=== PATIENT | male | born 1975 | race Caucasian/White ===

== ENCOUNTER 2017-06-18 21:03 | Inpatient (IN) | payer OTHER ==
[~2017-06-18] VITALS: Ht 182.9 cm; Wt 79.8 kg
--- NOTE | ~2017-06-18 | 2DMMODE ---
[facility] [address] [place] [address] 2 D/M-MODE ECHOCARDIOGRAM Name: JOEKAYLA Room #: 447-P [facility] IN ..#: [id number] Admission: 06/18/17 Attend Phys: Grant Cifuentes MD Discharge: Date of : 71 Date of Service: 06/21/17 1749 Report #: [id number] THIS REPORT FOR: //name// APPROVED REPORT Study performed: 06/21/2017 08:58:36 EXAM: Comprehensive 2D, Doppler, and color-flow Echocardiogram Patient Location: Echo lab Room #: [facility] Status: routine BSA: 2.00 HR: 60 bpm BP: 109/64 mmHg Rhythm: NSR Other Information Study Quality: Adequate Indications Pre-Op COPD Dyspnea Chest Pain 2D Dimensions RVDd: 48.14 mm LVEF(%): 82.87 (>50%) IVSd: 9.68 (7-11mm) LVOT Diam: 22.04 (18-24mm) LVDd: 42.44 mm PWd: 11.17 (7-11mm) LVDs: 20.65 (25-40mm) Aortic Root: 31.26 mm IVC: 2.20 mm TAPSE: 1.70 (<1.7) Godinez's LVEF: 82.87 % Volumes Left Atrial Volume (Systole) Single Plane 4CH: 41.15 mL Single Plane 2CH: 44.66 mL LA ESV Index: 23.60 mL/m2 Aortic Valve AoV Peak Arnulfo.: 1.31 m/s AO Peak Gr.: 6.91 mmHg LVOT Max P.92 mmHg LVOT Max V: 1.32 m/s ALEXIS Vmax: 3.82 cm2 [facility] [address] [place] [address] 2 D/M-MODE ECHOCARDIOGRAM Name: KAYLA DIAZ Room #: 447-P [facility].#: [id number] Admission: 06/18/17 Attend Phys: Grant Cifuentes MD Discharge: Date of : 71 Date of Service: 06/21/17 1749 Report #: [id number] Mitral Valve E/A Ratio: 2.1 MV Decel. Time: 178.42 ms MV E Max Arnulfo.: 0.80 m/s MV A Arnulfo.: 0.39 m/s MV PHT: 51.74 ms IVRT: 83.04 ms Pulmonary Valve PV Peak Arnulfo.: 0.83 m/s PV Peak Gr.: 2.73 mmHg Pulmonary Vein P Vein S: 0.49 m/s P Vein A: 0.21 m/s P Vein D: 0.51 m/s P Vein A Dur.: 106.1 msec P Vein S/D Ratio: 0.96 Left Ventricle The left ventricle is normal size. Regional wall motion is not well visualized but grossly normal. There is normal left ventricular wall thickness. The left ventricular systolic function is normal. The left ventricular ejection fraction is within the normal range. LVEF 55%. The left ventricular diastolic function is normal. Right Ventricle Right ventricle is dilated. The right ventricular systolic function is normal. Atria The left atrium size is normal. The right atrium size is normal. Aortic Valve The aortic valve is normal in structure. No aortic regurgitation is present. There is no aortic valvular stenosis. Mitral Valve The mitral valve is normal in structure. There is no mitral valve regurgitation noted. No evidence of mitral valve stenosis. Tricuspid Valve The tricuspid valve is normal in structure. There is trace tricuspid regurgitation. Pulmonic Valve Pulmonic valve is not well visualized. Trace pulmonic [address] [address] 2 D/M-MODE ECHOCARDIOGRAM Name: ROSANNA DIAZAlbania Gonzales Room #: 447-P [facility]#: [id number] Admission: 06/18/17 Attend Phys: Grant Cifuentes MD Discharge: Date of : 71 Date of Service: 06/21/17 1749 Report #: [id number] regurgitation. Great Vessels The aortic root is normal in size. IVC is dilated and collapses >50% with inspiration. Pericardium There is no pericardial effusion. <Conclusion> The left ventricular systolic function is normal. Regional wall motion is not well visualized but grossly normal. LVEF 55%. The aortic valve is normal in structure. No aortic regurgitation or stenosis The mitral valve is normal in structure. No mitral valve regurgitation Pulmonary artery pressure could not be reliably ascertained There is no pericardial effusion. <ELECTRONICALLY SIGNED> By: Zach Barrera MD, FACC 06/21/17 174 174 48 Zach Barrera MD, FACC /INF
--- NOTE | ~2017-06-18 | 2DMMODE ---
[facility] [address] [place] [address] 2 D/M-MODE ECHOCARDIOGRAM Name: KAYLA DIAZ E Room #: 239-P [facility] IN ..#: [id number] Admission: 06/18/17 Attend Phys: Grant Cifuentes MD Discharge: Date of : 71 Date of Service: 06/24/17 1158 Report #: [id number] THIS REPORT FOR: //name// APPROVED REPORT Study performed: 06/24/2017 10:38:16 EXAM: Comprehensive 2D, Doppler, and color-flow Echocardiogram Patient Location: ICU Room #: [facility] Status: stat BSA: 2.04 Other Information Study Quality: Good Indications Pulmonary Embolism Pulmonary Hypertension Dyspnea 2D Dimensions RVDd: 46.80 mm IVC: 22.00 mm Volumes Left Atrial Volume (Systole) Single Plane 4CH: 32.39 mL Single Plane 2CH: 38.33 mL LA ESV Index: 20.00 mL/m2 Tricuspid Valve TR Peak Arnulfo.: 3.88 m/s TR Peak Gr.: 60.19 mmHg PA Pressure: 75.00 mmHg Left Ventricle The left ventricle is normal size. There is normal left ventricular wall thickness. Left ventricular systolic function is hyperdynamic. LVEF is >70%. This study is not technically sufficient to allow evaluation of the LV diastolic function. Right Ventricle Right ventricle is dilated. Right ventricle is hypokinetic. [facility] [address] [place] [address] 2 D/M-MODE ECHOCARDIOGRAM Name: KAYLA DIAZ Room #: 239-P ADM IN .R.#: [id number] Admission: 06/18/17 Attend Phys: Grant Cifuentes MD Discharge: Date of : 71 Date of Service: 06/24/17 1158 Report #: [id number] Atria The left atrium size is normal. Right atrium is dilated. Aortic Valve The aortic valve is normal in structure. No aortic regurgitation is present. There is no aortic valvular stenosis. Mitral Valve The mitral valve is normal in structure. There is no mitral valve regurgitation noted. No evidence of mitral valve stenosis. Tricuspid Valve The tricuspid valve is normal in structure. There is mild tricuspid regurgitation. The right atrial pressure is estimated at mmHg. There is severe pulmonary hypertension. Estimated PAP was 75 mmHg. Pulmonic Valve The pulmonary valve is normal in structure. There is no pulmonic valvular regurgitation. Great Vessels The aortic root is normal in size. The inferior vena cava is dilated with no inspiratory collapse. Pericardium There is no pericardial effusion. <Conclusion> Right ventricle is dilated. Right atrium is dilated. There is severe pulmonary hypertension. Estimated PAP was 75 mmHg. The left ventricle is normal size. Left ventricular systolic function is hyperdynamic. The aortic valve is normal in structure. There is no mitral valve regurgitation noted. There is no pericardial effusion. <ELECTRONICALLY SIGNED> By: Aly Yepez MD 06/24/17 1158 1158 1158 Aly Yepez MD /INF
--- NOTE | ~2017-06-18 | EKG ---
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
--- NOTE | ~2017-06-18 | EKG ---
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
--- NOTE | ~2017-06-18 | S ---
[facility] [place] [address] SURGICAL PATH RPT PROCEDURE Name: KAYLA KUO Room #: 239-P ADM IN M.R.#: [id number] Admission: 06/18/17 Date of : 71 Discharge: Report #: [id number] Path Case #: [id number] PATHOLOGY REPORT COLLECTION DATE: 06/22/2017 RECEIVED DATE: 06/23/2017 SUBMITTING PHYS: Dr. Shekhar Isidro M.D. OTHER PHYS: Dr. Grant Cifuentes SPECIMEN(S) RECEIVED: A.Right upper lobe bleb * * * * * * * * * * * * FINAL DIAGNOSIS: Portion of lung and pleura, "right upper lobe bleb" wedge resection: - Bullae (bleb formation) with reactive mesothelial proliferation, focal dystrophic calcification, and with moderate chronic inflammation. - Recent and remote hemorrhage. - Fragment of lung reveals recent hemorrhage. - There is no evidence of malignancy. - See comment. (SHA:vicente; 06/24/2017) COMMENT: This case is also reviewed by Dr. Julia Whitlock. PATHOLOGIST: Cesar Anna M.D. REPORT ELECTRONICALLY SIGNED BY: Cesar Anna M.D. DATE/TIME: 06/24/2017 13:29 * * * * * * * * * * * * GROSS PATHOLOGY: The specimen is received in formalin, labeled "Kayla Kuo, right upper lobe bleb are 3 wedge-shaped portions of pulmonary tissue ranging in size from 2.7 x 1.5 x 1.5 cm-8.0 x 3.2 x 2.0 cm, with a combined weight of 28 g. Each fragment shows a staple line at one surface. The smaller fragment shows a protruding cyst like structure measuring 2.7 cm in greatest dimension. The pleural surfaces are smooth to roughened, glistening, purple, and hemorrhagic. Sectioning each reveals occasional blebs measuring up to 1.1 cm in greatest dimension. The remaining parenchyma is markedly congested and dark red. No additional lesions or masses are identified. [employer] sections are submitted as A1. (ISABELL; 06/23/2017) [facility] [place] [address] SURGICAL PATH RPT PROCEDURE Name: KAYLA KUO Room #: 239-P ADM IN .R.#: [id number] Admission: 06/18/17 Date of : 71 Discharge: Report #: [id number] Path Case #: [id number] CLINICAL HISTORY: Recurrent right pneumothorax INITIAL CPT CODE(S): A; 91990 Professional services performed by [facility] at [facility] [address] [place] [address] Technical services performed by [facility] at [address] [place] [address], [facility] [address] [address]. [facility] [address] [place] [address] PHONE: [phone] DIRECTOR: Justin Carrasco M.D. * * * END OF REPORT * * *
--- NOTE | ~2017-06-18 | HC ---
[facility] [place] [address] CONSULTATION Name: KAYLA DIAZ Room #: 447-P ADM IN M.R.#: [id number] Admission: 06/18/17 Attend Phys: Grant Cifuentes MD Discharge: Date of : 71 Report #: [id number] THIS REPORT FOR: //name// CC: [facility] physician/PCP Grant Lieberman MD REFERRAL PHYSICIAN: Grant Cifuentes M.D. REASON FOR REFERRAL: Pneumothorax. HISTORY OF PRESENT ILLNESS: The patient is a 41-year-old white male who was transferred from [facility] for right-sided pneumothorax. A pulmonary consultation was requested. At this present time, the patient is not able to give adequate history as he has been given medication. He appears somewhat somnolent. The patient presented to the [facility] for complaints of shortness of breath and right-sided chest pain. A chest x-ray showed right-sided pneumothorax. He was subsequently transferred to [facility] for further evaluation and management. According to the records, the patient had a prior history of right pneumothorax in 1998. Details of this are unknown. He also has an apparent history of bilateral DVT and pulmonary embolus. Detail of this again is unknown. Presently, he complains of chest pain. Otherwise, denies any recent trauma, nausea, vomiting or diarrhea. PAST MEDICAL HISTORY: As mentioned above and including apparent history of pneumothorax in 1998, on the right chest, COPD, history of heart failure, bilateral DVT, PE, gastroesophageal reflux disease and history of small-bowel obstruction with laparotomy, appendectomy, cholecystectomy and ventral hernia repair along with inguinal hernia repair. ALLERGIES: ACETAMINOPHEN, WHICH CAUSES NAUSEA AND VOMITING. PROPOXYPHENE CAUSES NAUSEA AND VOMITING. TRAMADOL CAUSES HIVES. HOME MEDICATIONS: List includes Bentyl, DuoNeb, Prilosec, ProAir and Coumadin 6 mg once a day. FAMILY HISTORY: Unremarkable. SOCIAL HISTORY: The patient smokes about 5 cigarettes per day. He denies any [facility] [address] [place] [address] CONSULTATION Name: KAYLA DIAZ Room #: 447-P [facility].#: [id number] Admission: 06/18/17 Attend Phys: Grant Cifuentes MD Discharge: Date of : 71 Report #: [id number] alcohol use. Denies any drug use. REVIEW OF SYSTEMS: Deferred as the patient is semi-awake at this time due to recent medications. PHYSICAL EXAMINATION: GENERAL: He is arousable, in no apparent distress. VITAL SIGNS: Temperature is 98 degrees Fahrenheit, pulse is 54, respiratory rate is 18, blood pressure is 100/55 mmHg, saturation is 99%. HEENT: Normocephalic, atraumatic. NECK: Supple without any lymphadenopathy or thyromegaly. CHEST: Breath sounds are clear bilaterally without any rales or wheezes. CARDIOVASCULAR: Normal S1 and S2. There are no murmurs or gallops. There is no JVD. There is no carotid bruit. Pulses are 2+/4+ bilaterally. ABDOMEN: Soft, nontender, no organomegaly or masses felt. GENITOURINARY AND RECTAL: Deferred. EXTREMITIES: There is no edema, cyanosis or clubbing. LABORATORY DATA: Portable chest x-ray revealed approximately 30% right-sided pneumothorax. Left lung field is unremarkable. Cardiac silhouette is unremarkable. Electrolytes are normal. Creatinine is normal. WBC is 10,900. Hemoglobin is 15.7. INR is 2.1. IMPRESSION: 1. Recurrent right pneumothorax. Appears to be spontaneous. He has an apparent history of right pneumothorax in 1998. He is now status post chest tube placement. Right lung field has reexpanded. 2. 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 3. Chronic obstructive pulmonary disease. 4. Tobacco abuse. RECOMMENDATION AND DISCUSSION: This is an apparent recurrent right-sided pneumothorax, although interval between pneumothorax is quite long. Because he smokes, he likely has underlying parenchymal abnormalities including subpleural blebs as a cause. I think the patient will benefit from surgical consultation for pleurodesis. We will continue chest tube to suction. Follow up chest x-ray. Consult Thoracic Surgery. Continue bronchodilators for COPD. The patient would benefit from counseling regarding smoke cessation. We would also continue anticoagulation given his history of DVT and pulmonary embolus. Details of this are unknown, whether it is provoked or unprovoked, along with duration of therapy. This will be further evaluated once the patient is more alert. [facility] [address] [place] [address] CONSULTATION Name: KAYLA DIAZ Room #: 447-P ADM IN M.R.#: [id number] Admission: 06/18/17 Attend Phys: Grant Cifuentes MD Discharge: Date of : 71 Report #: [id number] Thank you for this consultation. <ELECTRONICALLY SIGNED> By: Sukhdev Lieberman MD 06/20/17 1209 1430 2205 Sukhdev Lieberman MD /nt
[2017-06-18] MEDS ORDERED: BENTYL 20 MG TA20 M1 PO (22:47)
[2017-06-18] MEDS ORDERED: DUONEB 2.5-0.5 M3 ML INH (22:48)
[2017-06-18] MEDS ORDERED: PRILOSEC OTC20 MG PO (22:48)
[2017-06-18] MEDS ORDERED: PROAIR HFA8.5 GM INH (22:49)
[2017-06-18] MEDS ORDERED: COUMADIN 3 MG TA3 MG PO (22:51)
[2017-06-18 22:52] VITALS: BP 112/64
[2017-06-19 03:50] LABS: HEMATOCRIT 45.5 % (42.0-52.0); HEMOGLOBIN 15.7 gm/dL (14.0-18.0); MCH 33.9 pg (26.0-34.0); MCHC 34.5 g/dL (28.0-37.0); MCV 98.4 fL (80.0-100.0); RBC 4.63 mil/uL (4.50-6.00); RDW 13.2 % (10.5-14.5); WBC 10.9 thou/uL (4.0-11.0)
[2017-06-19 04:00] LABS: CALCIUM 8.9 mg/dL (8.5-10.1); CREATININE 0.9 mg/dL (0.7-1.3); POTASSIUM 4.5 mmol/L (3.5-5.1)
[2017-06-19 04:03] LABS: INR 2.1; PROTIME 21.4 Seconds (9.3-11.4)
[2017-06-19 04:18] VITALS: BP 128/69
[2017-06-19 08:00] VITALS: BP 115/66
[2017-06-19 10:07] VITALS: BP 115/66
[2017-06-19 11:09] VITALS: BP 99/55
[2017-06-19 16:00] VITALS: BP 118/63
[2017-06-19 20:45] VITALS: BP 115/55
[2017-06-20 03:40] VITALS: BP 102/54
[2017-06-20 07:50] VITALS: BP 101/54
[2017-06-20 15:15] VITALS: BP 117/57
[2017-06-20 16:07] LABS: INR 1.4; PROTIME 14.2 Seconds (9.3-11.4)
[2017-06-20 20:47] VITALS: BP 135/73
[2017-06-21 05:42] LABS: APTT 30.1 Seconds (24.5-32.8); INR 1.2
[2017-06-21 05:45] VITALS: BP 115/63
[2017-06-21 07:58] VITALS: BP 109/64
[2017-06-21 16:17] VITALS: BP 128/73
[2017-06-21 19:05] VITALS: BP 125/70
[2017-06-22] VITALS (11 sets, daily range): BP systolic 106–133; BP diastolic 66–76
[2017-06-22 05:38] LABS: INR 1.1; PROTIME 10.8 Seconds (9.3-11.4)
[2017-06-23] VITALS (16 sets, daily range): BP systolic 91–122; BP diastolic 56–79
[2017-06-23 05:09] LABS: HEMATOCRIT 41.2 % (42.0-52.0); HEMOGLOBIN 14.1 gm/dL (14.0-18.0); MCH 33.7 pg (26.0-34.0); MCHC 34.2 g/dL (28.0-37.0); MCV 98.6 fL (80.0-100.0); RBC 4.18 mil/uL (4.50-6.00); RDW 12.8 % (10.5-14.5); WBC 12.6 thou/uL (4.0-11.0)
[2017-06-23 05:21] LABS: CALCIUM 8.5 mg/dL (8.5-10.1); CREATININE 0.9 mg/dL (0.7-1.3); POTASSIUM 4.6 mmol/L (3.5-5.1)
[2017-06-24] VITALS (27 sets, daily range): BP systolic 99–134; BP diastolic 62–90
[2017-06-24 09:09] LABS: HEMATOCRIT 39.2 % (42.0-52.0); HEMOGLOBIN 13.3 gm/dL (14.0-18.0); MCH 33.5 pg (26.0-34.0); MCHC 33.9 g/dL (28.0-37.0); MCV 98.8 fL (80.0-100.0); RBC 3.97 mil/uL (4.50-6.00); RDW 13.3 % (10.5-14.5); WBC 19.5 thou/uL (4.0-11.0)
[2017-06-24 09:24] LABS: ABG SAMPLE TYPE ARTERIAL; BE(vivo) 1.3 mmol/L (-2 to +3); HCO3 26.9 mmol/L (22.0-26.0); LACTATE 2.12 mmol/L (0.5-2.0); O2(CT) 18.1 mL/dL (15.0-23.0); O2Hb 91.5 % (92.0-98.0); PCO2 46.3 mmHg (35.0-45.0); pH 7.382 (7.360-7.450); sO2 92.6 % (92.0-98.0); tCO2 28.3 mmol/L (24.0-30.0)
[2017-06-24 09:25] LABS: STICK SITE L.BRACHIAL
[2017-06-24 10:05] LABS: APTT 32.7 Seconds (24.5-32.8); INR 1.1
[2017-06-25] VITALS (29 sets, daily range): BP systolic 89–121; BP diastolic 55–87
[2017-06-25 08:10] LABS: HEMATOCRIT 35.4 % (42.0-52.0); HEMOGLOBIN 12.2 gm/dL (14.0-18.0); MCH 33.7 pg (26.0-34.0); MCHC 34.6 g/dL (28.0-37.0); MCV 97.6 fL (80.0-100.0); RBC 3.63 mil/uL (4.50-6.00); RDW 13.3 % (10.5-14.5); WBC 14.6 thou/uL (4.0-11.0)
[2017-06-25 08:22] LABS: CALCIUM 9.2 mg/dL (8.5-10.1); CREATININE 0.8 mg/dL (0.7-1.3); POTASSIUM 3.9 mmol/L (3.5-5.1)
[2017-06-26 00:17] VITALS: BP 91/50
[2017-06-26 04:10] VITALS: BP 102/57
[2017-06-26 04:55] LABS: HEMOGLOBIN 11.6 gm/dL (14.0-18.0); MCH 33.7 pg (26.0-34.0); MCHC 34.1 g/dL (28.0-37.0); MCV 98.6 fL (80.0-100.0); RBC 3.44 mil/uL (4.50-6.00); RDW 12.8 % (10.5-14.5); WBC 12.5 thou/uL (4.0-11.0)
[2017-06-26 08:15] VITALS: BP 103/61
[2017-06-26 12:26] VITALS: BP 115/65
[2017-06-26 16:18] VITALS: BP 121/76
[2017-06-26 16:42] LABS: PROTIME 9.6 Seconds (9.3-11.4)
[2017-06-26 20:00] VITALS: BP 119/66
[2017-06-27 04:00] VITALS: BP 112/61
[2017-06-27 06:50] LABS: HEMATOCRIT 33.2 % (42.0-52.0); HEMOGLOBIN 11.2 gm/dL (14.0-18.0); MCH 33.1 pg (26.0-34.0); MCHC 33.8 g/dL (28.0-37.0); MCV 98.1 fL (80.0-100.0); RBC 3.38 mil/uL (4.50-6.00); RDW 12.8 % (10.5-14.5); WBC 11.2 thou/uL (4.0-11.0)
[2017-06-27 08:34] VITALS: BP 111/63
[2017-06-27 09:33] LABS: PROTIME 9.7 Seconds (9.3-11.4)
[2017-06-27 19:41] VITALS: BP 108/64
[2017-06-28 04:50] VITALS: BP 108/56
[2017-06-28 06:45] LABS: PROTIME 10.1 Seconds (9.3-11.4)
[2017-06-28 08:08] VITALS: BP 114/71
[2017-06-28 12:11] VITALS: BP 131/72
[2017-06-28] MEDS ORDERED: PERCOCET PO (12:42)
[2017-06-28] MEDS ORDERED: ELIQUIS5 MG PO ×2 (12:42→12:47)
[2017-06-28] MEDS ORDERED: AUGMENTIN 875-1 EACH PO (12:43)
[2017-06-28 12:56] VITALS: BP 131/72
== END 2017-06-28 14:55 | disposition home or self-care (01) | DRG 163 ==
LOC: EDSEX → 4S 21:03 → ICU 06-22 17:06 → 2N 06-23 19:47 → ICU 06-24 10:20 → 4W 06-25 16:56
PROVIDERS: Hospitalist; Internal Medicine; Internal Medicine Pulmonary Disease; Nurse Practitioner; Nurse Practitioner Family
PROC: 0W9930Z Drainage of Right Pleural Cavity with Drainage Device, Percutaneous Approach (ICD-10-PCS; principal; 2017-06-19)
PROC: 0BBC0ZZ Excision of Right Upper Lung Lobe, Open Approach (ICD-10-PCS; 2017-06-22)
PROC: 3E0L3GC Introduction of Other Therapeutic Substance into Pleural Cavity, Percutaneous Approach (ICD-10-PCS; 2017-06-22)
PROC: 4A133J1 Monitoring of Arterial Pulse, Peripheral, Percutaneous Approach (ICD-10-PCS; 2017-06-22)
PROC: 4A133B1 Monitoring of Arterial Pressure, Peripheral, Percutaneous Approach (ICD-10-PCS; 2017-06-22)
DX: J93.83 Other pneumothorax (principal); J96.20 Acute and chronic respiratory failure, unspecified whether with hypoxia or hypercapnia; I26.99 Other pulmonary embolism without acute cor pulmonale; I82.443 Acute embolism and thrombosis of tibial vein, bilateral; J44.9 Chronic obstructive pulmonary disease, unspecified; I50.9 Heart failure, unspecified; K21.9 Gastro-esophageal reflux disease without esophagitis; F17.210 Nicotine dependence, cigarettes, uncomplicated; I27.2 Other secondary pulmonary hypertension; D72.829 Elevated white blood cell count, unspecified; Z90.49 Acquired absence of other specified parts of digestive tract; Z88.6 Allergy status to analgesic agent; Z88.8 Allergy status to other drugs, medicaments and biological substances; Z71.6 Tobacco abuse counseling; Z79.01 Long term (current) use of anticoagulants; Z88.5 Allergy status to narcotic agent
CPT/HCPCS: 10045; 10078; 10100; 10203; 10797; 50010; 50101; 50249; 50386; 50417; 50455; 50497; 50558; 50739; 50740; 51489; 51687; 52265; 52266; 54118; 56524; 56525; 56526; 62110; 62900; 70005

== ENCOUNTER 2017-07-05 09:46 | Inpatient (IN) | payer OTHER ==
[~2017-07-05] VITALS: Ht 182.9 cm; Wt 77.8 kg
[2017-07-05] VITALS (19 sets, daily range): BP systolic 114–131; BP diastolic 63–80
--- NOTE | ~2017-07-05 | HC ---
[facility] [place] [address] CONSULTATION Name: KAYLA DIAZ Room #: 239-P ADM IN M.R.#: [id number] Admission: 07/05/17 Attend Phys: Galo Corey Discharge: Date of : 71 Report #: [id number] THIS REPORT FOR: //name// CC: Shekhar Isidro MD [facility] physician/PCP Galo Lieberman MD DATE OF SERVICE: 07/05/2017 REFERRING PROVIDER: Galo Corey MD REASON FOR CONSULTATION: Pneumothorax. HISTORY OF PRESENT ILLNESS: Our group was asked to see the patient in consultation while hospitalized at [facility], known to us from a recent admission for recurrent right pneumothorax, underwent right video-assisted thoracoscopy with right upper lobe wedge resection, talc pleurodesis June 22. This hospital course was complicated by venous thromboembolism, which he had difficulty with in the past, was discharged on Eliquis. The patient notes sudden symptoms yesterday evening after vigorous coughing with some right-sided chest pain. The patient does have an inhaler at home, which he uses rarely. Has not used his albuterol inhaler for 2 days despite having some ongoing cough that is nonproductive. No fever, chills or sweats. He was discharged on Augmentin, possible respiratory infection at that time as well. He went to [facility] for chest pain and shortness of breath, was found to have right lower chest pneumothorax with some significant volume loss. Right upper section appeared to be adherent to the chest wall. A small caliber chest tube was inserted there and he was transferred here; however, the small caliber chest tube was removed due to inadequate repositioning. The patient is pending placement of chest tube, appears comfortable on nonrebreather mask, speaking in full sentences in no distress. ALLERGIES: Include tramadol, morphine, Darvocet. OUTPATIENT MEDICATIONS: Include dicyclomine, DuoNebs, omeprazole, albuterol, oxycodone, amoxicillin, clavulanic acid and Eliquis. PAST MEDICAL HISTORY: 1. COPD, emphysema, predominant. 2. Gastroesophageal reflux disease. 3. Recurrent venous thromboembolism. PAST SURGICAL HISTORY: 1. Includes right video-assisted thoracoscopy as described in the HPI. [address] [address] CONSULTATION Name: KAYLA DIAZ Room #: 239-P [facility] IN M.R.#: [id number] Admission: 07/05/17 Attend Phys: Galo Corey Discharge: Date of : 71 Report #: [id number] 2. Appendectomy. 3. Cholecystectomy. 4. Small-bowel obstruction surgeries. 5. Ventral hernia repair. SOCIAL HISTORY: Ex-smoker, he states he quit about 1 month ago, occasional alcohol consumption. Currently living with family. FAMILY HISTORY: Negative for any pulmonary disease. REVIEW OF SYSTEMS: A 12-point review of systems is negative except as described in HPI. PHYSICAL EXAMINATION: VITAL SIGNS: Afebrile, pulse 70s and regular, respiratory rate 18, blood pressure 123/78. GENERAL: This is a pleasant middle-aged male in no distress. ENT: Clear oropharynx. No thrush. No erythema. NECK: Supple, no lymphadenopathy. LUNGS: Markedly diminished right base with hyperresonance to percussion with some diffuse expiratory wheezes noted. CARDIOVASCULAR: Heart regular. No murmurs noted. ABDOMEN: Soft, nontender, no masses. EXTREMITIES: Without edema, clubbing or cyanosis. INTEGUMENT: Without rash. LABORATORY DATA: CBC revealed mild anemia, hemoglobin 8, otherwise normal. Chemistry profile reveals sodium 144, potassium 2.6, chloride 116, bicarbonate 20, BUN 7, creatinine 0.4, glucose 76, calcium 5.2, albumin 1.6. INR 1.3. Chest x-ray as described in HPI. IMPRESSION: 1. Recurrent right pneumothorax, appears to have some positive result from his prior pleurodesis with the right upper lung arm apparently with good pleurodesis of right lower chest as recurrent pneumothorax. 2. History of recurrent venous thromboembolism and high risk of recurrent embolism given prior history and recent pulmonary embolism if the anticoagulation were to be discontinued. SUGGEST: 1. Continue to hold Eliquis. 2. Right chest tube placement. 3. When any persistent air leak is stopped, consider repeat pleurodesis, choice of agent depending on prior volume of talc used and would consider doxycycline as an alternative to significant amount of talc used in prior procedure. 4. Continue his bronchodilators. [address] [address] CONSULTATION Name: JOEKAYLA E Room #: 239-P [facility] IN M.R.#: [id number] Admission: 07/05/17 Attend Phys: Galo Corey Discharge: Date of : 71 Report #: [id number] 5. Continue with full Lovenox anticoagulation or heparin gtt during this time frame. 6. Thoracic surgery consultation. 7. Further recommendations to follow. Thank you for requesting our suggestions. Dr. Lieberman will assume care of this patient tomorrow from a pulmonary perspective. By: 1337 1439 Aurelio Vernon MD /nt
--- NOTE | ~2017-07-05 | EKG ---
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 : 1975 Requested By: Sukhdev Lieberman Order Number: [id number] MD: Zach Barrera Measurements Intervals [place] Rate: 164 P: ME: QRS: 56 QRSD: 89 T: 24 QT: 276 QTc: 456 Interpretive Statements Atrial fibrillation Consider left ventricular hypertrophy Nonspecific ST and T wave abnormality Compared to ECG 06/24/2017 09:32:56 Atrial fibrillation has replaced sinus tachycardia Electronically Signed On 07-06-2017 8:10:53 CDT by Zach Barrera [email or web address] <ELECTRONICALLY SIGNED> By: Zach Barrera MD, [facility] 07/06/17 0810 2 2 Zach Barrera MD, [facility] /EPI
--- NOTE | ~2017-07-05 | 2DMMODE ---
[facility] [address] [place] [address] 2 D/M-MODE ECHOCARDIOGRAM Name: KAYLA DIAZ Room #: 239-P ADM IN M.R.#: [id number] Admission: 07/05/17 Attend Phys: Galo Abad Discharge: Date of : 71 Date of Service: 07/06/171403 Report #: [id number] THIS REPORT FOR: //name// APPROVED REPORT Study performed: 07/06/2017 13:13:01 EXAM: Comprehensive 2D, Doppler, and color-flow Echocardiogram Patient Location: ICU Room #: 239 Status: routine Other Information Study Quality: Adequate Indications Code Blue. Look for function. Echo done in between chest compressions. Limited images. Right Ventricle SPONTANEOUS CONTRAST WITH POSSIBLE LARGE THROMBUS LOAD NOTED Pericardium There is no pericardial effusion. No pericardial effusion. <ELECTRONICALLY SIGNED> By: Tommy Gregg MD 07/06/17 1404 03 03 Tommy Gregg MD /INF
[~2017-07-05 09:46] MED LIST: AUGMENTIN 875-1 EACH PO; BENTYL 20 MG TA20 M1 PO; COUMADIN 3 MG TA3 MG PO; DUONEB 2.5-0.5 M3 ML INH; ELIQUIS5 MG PO; PERCOCET PO; PRILOSEC OTC20 MG PO; PROAIR HFA8.5 GM INH
[2017-07-05 10:39] LABS: HEMATOCRIT 23.9 % (42.0-52.0); HEMOGLOBIN 8.2 gm/dL (14.0-18.0); MCHC 34.5 g/dL (28.0-37.0); MCV 98.7 fL (80.0-100.0); RBC 2.42 mil/uL (4.50-6.00); RDW 12.4 % (10.5-14.5); WBC 8.7 thou/uL (4.0-11.0)
[2017-07-05 10:46] LABS: CREATININE 0.4 mg/dL (0.7-1.3)
[2017-07-05 10:50] LABS: INR 1.3
[2017-07-05 10:52] LABS: ALBUMIN 1.6 g/dL (3.4-5.0); TOTAL BILIRUBIN 0.2 mg/dL (<0.1-1.0); TOTAL PROTEIN 4.5 g/dL (6.4-8.2)
[2017-07-05 10:57] LABS: CALCIUM 5.2 mg/dL (8.5-10.1); POTASSIUM 2.6 mmol/L (3.5-5.1)
[2017-07-05 13:31] LABS: HEMATOCRIT 40.9 % (42.0-52.0)
[2017-07-05 13:33] LABS: CREATININE 0.8 mg/dL (0.7-1.3)
[2017-07-05 13:38] LABS: HEMOGLOBIN 13.7 gm/dL (14.0-18.0)
[2017-07-05 13:39] LABS: MAGNESIUM 2.1 mg/dL (1.8-2.4); PHOSPHORUS 3.2 mg/dL (2.5-4.9); TOTAL BILIRUBIN 0.4 mg/dL (<0.1-1.0); TOTAL PROTEIN 7.3 g/dL (6.4-8.2)
[2017-07-05 13:47] LABS: CALCIUM 9.1 mg/dL (8.5-10.1); POTASSIUM 4.8 mmol/L (3.5-5.1)
[2017-07-05 18:31] LABS: ALBUMIN 2.8 g/dL (3.4-5.0); CALCIUM 8.9 mg/dL (8.5-10.1); CREATININE 0.8 mg/dL (0.7-1.3); MAGNESIUM 2.1 mg/dL (1.8-2.4); POTASSIUM 4.2 mmol/L (3.5-5.1); TOTAL BILIRUBIN 0.5 mg/dL (<0.1-1.0); TOTAL PROTEIN 7.3 g/dL (6.4-8.2)
[2017-07-06] VITALS (15 sets, daily range): BP systolic 105–120; BP diastolic 55–81
[2017-07-06 05:12] LABS: HEMATOCRIT 31.6 % (42.0-52.0); MCH 33.8 pg (26.0-34.0); MCHC 33.8 g/dL (28.0-37.0); MCV 99.9 fL (80.0-100.0); RBC 3.16 mil/uL (4.50-6.00); RDW 13.1 % (10.5-14.5); WBC 10.3 thou/uL (4.0-11.0)
[2017-07-06 05:20] LABS: HEMOGLOBIN 10.7 gm/dL (14.0-18.0)
[2017-07-06 05:32] LABS: ALBUMIN 2.4 g/dL (3.4-5.0); CALCIUM 8.6 mg/dL (8.5-10.1); CREATININE 0.6 mg/dL (0.7-1.3); PHOSPHORUS 3.7 mg/dL (2.5-4.9); POTASSIUM 4.6 mmol/L (3.5-5.1)
[2017-07-06 08:23] LABS: ANION GAP 7 mmol/L (7-16); CHLORIDE 105 mmol/L (98-107); CO2 26 mmol/L (21-32); MAGNESIUM 1.9 mg/dL (1.8-2.4); POTASSIUM 3.9 mmol/L (3.5-5.1); SODIUM 138 mmol/L (136-145); TROPONIN-I < 0.04 ng/mL (<0.04-0.07)
== END 2017-07-06 13:33 | DRG 199 ==
LOC: ICU 09:46
PROVIDERS: Hospitalist; Internal Medicine Pulmonary Disease; Nurse Practitioner
PROC: 0W9930Z Drainage of Right Pleural Cavity with Drainage Device, Percutaneous Approach (ICD-10-PCS; principal; 2017-07-05)
PROC: 5A12012 Performance of Cardiac Output, Single, Manual (ICD-10-PCS; 2017-07-06)
DX: J93.9 Pneumothorax, unspecified (principal); E43 Unspecified severe protein-calorie malnutrition; J44.9 Chronic obstructive pulmonary disease, unspecified; K21.9 Gastro-esophageal reflux disease without esophagitis; I50.9 Heart failure, unspecified; E87.6 Hypokalemia; F17.210 Nicotine dependence, cigarettes, uncomplicated; I48.91 Unspecified atrial fibrillation; D64.9 Anemia, unspecified; Z88.8 Allergy status to other drugs, medicaments and biological substances; Z88.5 Allergy status to narcotic agent; Z88.6 Allergy status to analgesic agent; Z86.711 Personal history of pulmonary embolism; Z90.49 Acquired absence of other specified parts of digestive tract; Z86.718 Personal history of other venous thrombosis and embolism; Z68.23 Body mass index [BMI] 23.0-23.9, adult
CPT/HCPCS: 10078